=== PATIENT | female | born 1960 | race Caucasian/White ===

== ENCOUNTER 2017-03-31 17:31 | Observation (INO) ==
[2017-04-01] MEDS ORDERED: Sennosides 8.6 MG TABLET PO PRN (00:09)
[2017-04-01] MEDS ORDERED: MOM Conc 10 ML UD.LIQ PO PRN (00:09)
[2017-04-01] MEDS ORDERED: Acetaminophen 325 MG TABLET PO PRN (00:09)
[2017-04-01] MEDS ORDERED: Ondansetron 4 MG/2 ML VIAL IVP PRN (00:09)
[2017-04-01] MEDS ORDERED: Temazepam 15 MG CAPSULE PO PRN (00:09)
[2017-04-01] MEDS ORDERED: Naloxone 0.4 MG/ML INJ IVP PRN (00:09)
[2017-04-01] MEDS ORDERED: *HR* OxyCODONE Immed Rel 5 MG TABLET PO PRN ×2 (00:09)
[2017-04-01] MEDS ORDERED: Ringers Solution, Lactated 1,000 ML IVC SCH (00:15)
[2017-04-01 04:34] VITALS: BP 110/69
[2017-04-01] MEDS ORDERED: ceFAZolin 2,000 MG in D5% in Water 100 ML IVPB SCH (08:00)
--- NOTE | 2017-04-01 08:02 | Orthopedic History & Physical ---
Date of Encounter: 04/01/17 Time of Encounter: 00:00 Assessment and Plan (1) Postoperative nausea and vomiting Status: Resolved History of Present Illness Chief complaint: Post-op nausea HPI: Ms. Bob is a 57 year old female POD #1 Right shoulder scope rotator cuff repair, subacromial decompression, and distal clavicle resection 03/31/17. Patient experienced post-operative nausea and per anesthesiology needed to be admitted for inpatient management. Patient not in room and I was informed by nursing staff that she left at about 5am this morning stating she was feeling much improved. Will plan to see her in the office for regularly scheduled follow up. Past Med Surg Social Fam HX - Past Medical History Medical history: arthritis, fibromyalgia, GERD, other Psychiatric history: anxiety - Social History Smoking Status: Never smoker Smokeless Tobacco Status: No Alcohol use: none Drug use: none Medications and Allergies Omeprazole [PriLOSEC] 20 mg PO DAILY 05/12/16 [History] Calcium Carbonate/Vitamin D3 [Calcium 600-Vit D3 200 Tablet] 1 each PO DAILY #0 03/31/17 [History] Clindamycin [Cleocin] 150 mg PO Q6HR #7 capsule 03/31/17 [Rx] DULoxetine [Cymbalta] 30 mg PO DAILY #0 03/31/17 [History] Ibuprofen [Motrin] 800 mg PO Q8HR #30 tablet 03/31/17 [Rx] Multivitamin [Multi-Day Vitamins] 1 each PO DAILY #0 03/31/17 [History] OxyCODONE Immed Rel [Roxicodone 5 MG] 5 mg PO Q4HR PRN #24 tablet 03/31/17 [Rx] Allergies Antihistamines - Alkylamine Allergy (Verified 05/12/16 16:04) See Comments promethazine [From Phenergan] Allergy (Verified 05/12/16 16:04) Nausea All Systems Reviewed: A 10-system review of systems was performed and is negative for pertinent findings except as documented above in the HPI. Physical Exam - Constitutional Vitals: Temp Pulse Resp BP Pulse Ox 98.5 F 86 16 110/69 94 04/01/17 04:31 04/01/17 04:31 04/01/17 04:31 04/01/17 04:31 04/01/17 04:31 Results - Labs Labs: All other labs normal.
== END 2017-04-01 04:55 | disposition home or self-care (01) ==
LOC: 3NENU
PROVIDERS: ADMIT Orthopaedic Surgery; ATTEND Orthopaedic Surgery